=== PATIENT | male | born 1990 | race Caucasian/White ===

== ENCOUNTER 2017-12-04 16:30 | Emergency (ER) | payer BC ==
[2017-12-04] MEDS ORDERED: LIDOCAINE (XYLOCAINE) 1% MPF 10MG/ML 5ML VIAL ONE (16:48)
--- NOTE | 2017-12-04 17:35 | Emergency Department Record ---
History of Present Illness - General Chief complaint: Hemorrhoids Stated complaint: HEMORROID Time Seen by Provider: 12/04/17 16:48 Source: Patient Mode of Arrival: Ambulatory Limitations: No limitations - History of Present Illness Initial comments: Pt with rectal pain and pressure for 3 days. No fever. Color blind so unsure if blood in stool or paper. No rectal intercourse or trauma. No DM. General good health. Onset/Timin -: Week(s) Consistency: Constant Improves with: None Worsens with: None Associated Symptoms: Denies other symptoms Treatments Prior to Arrival: Topical ointment - Related Data Previous Rx's Medication Instructions Recorded Amoxicillin/Potassium Clav 1 tab PO BID 7 Days #14 tab 12/04/17 [Augmentin 875-125 Tablet] Docusate Sodium [Colace] 100 mg PO QHS 10 Days #40 cap 12/04/17 Allergies Allergy/AdvReac Type Severity Reaction Status Date / Time No Known Drug Allergies Allergy Verified 12/04/17 16:38 Travel Screening - Travel/Exposure Within Last 30 Days Have you traveled within the last 30 days?: No Review of Systems Constitutional: Denies: Chills, Fever, Night sweats, Weakness Eyes: Denies: Eye discharge, Photophobia ENT: Denies: Congestion Respiratory: Denies: Cough, Hemoptysis Cardiovascular: Denies: Arrhythmia, Chest pain Endocrine: Denies: Fatigue, Polydipsia, Polyuria Gastrointestinal: Reports: As per HPI. Denies: Abdominal pain, Constipation, Diarrhea, Melena, Nausea Genitourinary: Denies: Discharge, Dysuria, Frequency Musculoskeletal: Denies: Arthralgia Skin: Denies: Bruising, Rash Neurological: Denies: Abnormal gait, Headache, Tingling Psychiatric: Denies: Anxiety Hematological/Lymphatic: Denies: Anemia Past Medical History - SOCIAL HISTORY Smoking Status: Former smoker Alcohol Use: Occasional Drug Use: None - RESPIRATORY Hx Respiratory Disorders: No - CARDIOVASCULAR Hx Cardio Disorders: No - NEURO Hx Neuro Disorders: No - GI Hx GI Disorders: No - Hx Genitourinary Disorders: No - ENDOCRINE Hx Endocrine Disorders: No - MUSCULOSKELETAL Hx Musculoskeletal Disorders: Yes - PSYCH Hx Psych Problems: Yes Hx Depression: Yes - HEMATOLOGY/ONCOLOGY Hx Hematology/Oncology Disorders: No Family Medical History Any Significant Family History?: No Physical Exam - General General Appearance: Alert, Oriented x3, Cooperative, No acute distress - Head Head exam: Normal inspection - Eye Eye exam: PERRL, EOMI, Nystagmus - ENT ENT exam: Normal exam, Mucous membranes moist Ear exam: Normal external inspection Nasal Exam: Normal inspection Mouth exam: Normal external inspection, Tongue elevation - Neck Neck exam: Normal inspection, Full ROM. negative: Tenderness - Respiratory Respiratory exam: Normal lung sounds bilaterally. negative: Respiratory distress, Rhonchi - Cardiovascular Cardiovascular Exam: Regular rate, Normal rhythm, Normal heart sounds. negative : Tachycardia - GI/Abdominal GI/Abdominal exam: Soft, Normal bowel sounds. negative: Distended, Guarding, Tenderness - Rectal Rectal exam: Heme (-) stool, Mass, Normal rectal tone, Normal prostate, Tenderness (pt with tender fullness perianal posterior lateral, on digital exam able to fully palpate boarders. Size of an walnut. Tender, no pointing or drainage. ). negative: Hemorrhoids - Extremities Extremities exam: Normal inspection - Back Back exam: Reports: Normal inspection. Denies: Paraspinal tenderness - Neurological Neurological exam: Alert, Normal gait, Oriented X3 - Psychiatric Psychiatric exam: Normal affect, Normal mood - Skin Skin exam: Normal color. negative: Rash Type of lesion: Abscess (shae rectal. ) Course Vital Signs 12/04/17 16:35 Temperature 98.2 F Pulse Rate 90 Respiratory 16 Rate Blood Pressure 160/93 Pulse Ox 99 - Reevaluation(s) Reevaluation #1: 12/04/17 17:35 I&D perianal abscess per procedure note. Home on Augmentin with referral to Dr. Chandler. Discussed with Dr. Chandler - agrees with plan. Pt agree with plan. Procedures - Incision and Drainage Site: perirectal Blade Size: 11 (Area cleaned with alcohol pad and local 3 cc of 1% lido without epi. Incised with #11 pland radial from anus - close to anus. Return of 5 cc of purulent yellow material. Irrigated with saline and probed with hemostat. No packing. Pt tolerated very well. Bleeding controlled and dressing applied to area in shorts.) Disposition Disposition: Discharge Clinical Impression: Perianal abscess Disposition: Home, Self-Care Condition: (2) Stable Instructions: Rectal Abscess (ED) Additional Instructions: sitz baths, local dressing AB as ordered. Dr. Chandler in clinic. Prescriptions: Docusate Sodium [Colace] 100 mg PO QHS 10 Days #40 cap Amoxicillin/Potassium Clav [Augmentin 875-125 Tablet] 1 tab PO BID 7 Days #14 tab Referrals: Sanjay Chandler [DOCTOR OF [facility]STEOPATH] - Forms: Patient Portal Access Quality - Blood Pressure Screening Does Patient Have Any of the Following: No Blood Pressure Classification: Hypertensive Reading Systolic Measurement: 160 Diastolic Measurement: 93
== END 2017-12-04 17:54 | disposition home or self-care (01) ==
LOC: ER 16:30
DX: K61.0 Anal abscess (principal); Z87.891 Personal history of nicotine dependence
CPT/HCPCS: 46050; 99284